=== PATIENT | male | born 1995 | race Hispanic/Latino ===

== ENCOUNTER → 2019-05-01 | Outpatient (CLI) | payer BC ==
--- NOTE | 2019-05-01 14:22 | Diagnostic Imaging Report ---
Examination: Left and right cervical soft tissue ultrasound. Clinical indication: Left-sided neck mass. Comparison examination: None available. Technique: Transverse and longitudinal sonographic images of the right and left cervical regions was performed with supplemental color Doppler analysis. Findings: No discrete soft tissue mass lesion or fluid collection is identified in the area of clinical concern in the left cervical region. Nonenlarged, morphologically normal cervical lymph nodes are identified bilaterally. Impression: No focal mass or fluid collection is identified in the area of clinical concern in the left cervical region. Signed by: Dr. Nilesh Yoder M.D. on 05/01/2019 2:19 PM
== END ==
LOC: US 13:06
PROVIDERS: ATTEND Family Medicine
DX: R22.1 Localized swelling, mass and lump, neck (principal)
CPT/HCPCS: 76536